=== PATIENT | male | born 1975 | race Caucasian/White ===

== ENCOUNTER 2017-09-14 01:42 | Inpatient (IN) | payer OTHER ==
[~2017-09-14] VITALS: Ht 165.1 cm; Wt 81.8 kg
[2017-09-14 01:53] VITALS: Ht 165.1 cm; Wt 81.8 kg
[2017-09-14 03:10] LABS: BASOPHIL % 0.3 % (0-2); PLATELET COUNT 171 x10^3mcL (130-400); RED CELL DISTRIBUTION WIDTH 12.4 % (11.5-14.5)
[2017-09-14 03:14] LABS: CALCIUM 8.6 mg/dL (8.5-10.1); CHLORIDE SERUM 105 mmol/L (98-107); CREATININE SERUM 0.8 mg/dL (0.7-1.3); GFR1 > 60 mL/min; GLUCOSE SERUM 144 mg/dL (74-106); POTASSIUM SERUM 3.4 mmol/L (3.5-5.1); SODIUM SERUM 140 mmol/L (136-145)
[2017-09-14 03:20] LABS: ALBUMIN 3.9 g/dL (3.4-5.0); ALKALINE PHOSPHATASE 66 U/L (46-116); ALT/SGPT 30 U/L (16-63); AST/SGOT 26 U/L (15-37); BILIRUBIN TOTAL 1.04 mg/dL (0.20-1.00); TOTAL PROTEIN, SERUM 6.9 g/dL (6.4-8.2)
[2017-09-14 04:51] VITALS: BP 123/67
[2017-09-14 05:31] VITALS: BP 123/67
[2017-09-14 07:37] LABS: CHOLESTEROL/HDL RATIO 8.2; MAGNESIUM 2.1 mg/dL (1.8-2.4); PHOSPHOROUS 3.9 mg/dL (2.5-4.9)
[2017-09-14 07:46] LABS: FREE T4 1.14 ng/dL (0.76-1.46); FREE THYROXINE INDEX 2.9 ug/dL (1.4-4.5); T4(THYROXINE) 8.4 ug/dL (4.7-13.3)
[2017-09-14 08:35] LABS: T3 TOTAL 1.48 ng/mL
[2017-09-14 09:26] VITALS: BP 107/53
[2017-09-14 09:35] LABS: microscopic required? NO
[2017-09-14 10:04] LABS: UA SPECIFIC GRAVITY >=1.030 (1.005-1.035); urine erythrocyte NEGATIVE (NEGATIVE)
[2017-09-14 10:12] LABS: AMPHETAMINE QUAL UR NONE DETECTED (NEG <=1000)
[2017-09-14 13:15] VITALS: BP 117/62
[2017-09-14 17:10] VITALS: BP 110/62
[2017-09-14 18:05] VITALS: BP 117/62
[2017-09-14] MEDS ORDERED: NIC14 TD (18:09)
[2017-09-14] MEDS ORDERED: LIPI10 PO (18:10)
[2017-09-14] MEDS ORDERED: ECO81 PO (18:14)
== END 2017-09-14 19:37 | disposition home or self-care (01) | DRG 243 ==
LOC: ED 01:42 → DU 03:58
PROVIDERS: Emergency Medicine; Family Medicine
DX: K21.9 Gastro-esophageal reflux disease without esophagitis (principal); N17.0 Acute kidney failure with tubular necrosis; F17.210 Nicotine dependence, cigarettes, uncomplicated; R73.9 Hyperglycemia, unspecified; Z82.49 Family history of ischemic heart disease and other diseases of the circulatory system; E87.6 Hypokalemia
CPT/HCPCS: 83880; 84439; J2405; J7030; Q0092